=== PATIENT | male | born 1985 | race Caucasian/White ===

== ENCOUNTER 2018-03-28 14:07 | Emergency (ER) | payer OTHER ==
[2018-03-28 14:14] VITALS: BP 115/81
[2018-03-28] MEDS ORDERED: TDAP ADULT 0.5 ML INJ (BOOSTRIX) IM ONE (14:33)
--- NOTE | 2018-03-28 14:59 | EDPHY ---
H & P Time Seen by Provider: 03/28/18 14:35 HPI/ROS: CHIEF COMPLAINT: Right index finger laceration HISTORY OF PRESENT ILLNESS: 33-year-old male with out-of-date tetanus works at [employer] sustained accidental laceration to his right index finger palmar aspect distal phalanx when he put his hand down on a sharp piece of sheet metal sustaining laceration. This was accidental. No paresthesia. No sensory or motor deficit. PHYSICAL EXAM (Prior to examination, patient consented to physical exam, hands were washed and my usual and customary physical exam procedures followed) 1) GENERAL: Well-developed, well-nourished, alert and oriented. Appears to be in no acute distress. 2) HEAD: Normocephalic 3) HEENT: sclera anicteric 4) LUNGS: Breathing comfortably. 5) SKIN: 1.5 cm laceration palmar aspect distal phalanx right index finger. 6) MUSCULOSKELETAL: FDP FDS intact. 7) NEUROLOGIC: Full sensation two-point discrimination intact Smoking Status: Never smoked Constitutional: Initial Vital Signs Temperature (C) 37.0 C 03/28/18 14:12 Heart Rate 76 03/28/18 14:12 Respiratory Rate 16 03/28/18 14:12 Blood Pressure 115/81 H 03/28/18 14:12 O2 Sat (%) 97 03/28/18 14:12 O2 Delivery Mode Room Air Allergies/Adverse Reactions: Sulfa (Sulfonamide Antibiotics) Allergy (Verified 03/28/18 14:11) Home Medications: Medication Instructions Recorded NK [No Known Home Meds] 03/28/18 MDM/Departure - MDM Imaging: I viewed and interpreted images myself Procedures: Procedure: Laceration repair. I explained the indications, risks and benefits for both laceration repair and anesthetic administration. Verbal consent was obtained from the patient. The laceration on the right index finger was anesthetized using 0.5% bupivicaine without epinephrine digital nerve block. After anesthetic administered the patient was observed for a period of time and had no apparent adverse effects. The wound was cleaned, prepped, draped in normal sterile fashion and explored to its base. No foreign body seen, no foreign bodies palpated. There were no deep structures involved. No tendon injury was identified. The wound was repaired with 4 simple interrupted 5 O Prolene sutures. The wound repair was simple. The procedure was performed by myself. Patient has been informed that scarring will occur, although efforts have been made to minimize this. Medications Given: Discontinued Medications Diphtheria/Tetanus/Acell Pertussis (Boostrix) 0.5 ml IM .ONCE ONE Stop: 03/28/18 14:34 Last Admin: 03/28/18 14:46 Dose: 0.5 ml - Depart Disposition: Home, Routine, Self-Care Clinical Impression: Laceration of finger Qualifiers: Encounter type: initial encounter Finger: index finger Damage to nail status: without damage Foreign body presence: without foreign body Laterality: right Qualified Code(s): S61.210A - Laceration without foreign body of right index finger without damage to nail, initial encounter Condition: Good Instructions: Care For Your Stitches (ED), Laceration (ED) Additional Instructions: Return to the ER if you develop redness, swelling, discharge, warmth to the wound, red streaks going up your arm, or any other symptoms that concern you. Referrals: Return, to the ER in 10 days for suture removal [Other] - 04/07/18
== END 2018-03-28 15:20 | disposition home or self-care (01) ==
PROC: 0HQFXZZ Repair Right Hand Skin, External Approach (ICD-10-PCS; principal; 2018-03-28)
DX: S61.210A Laceration without foreign body of right index finger without damage to nail, initial encounter (principal); Z23 Encounter for immunization; W45.8XXA Other foreign body or object entering through skin, initial encounter; Y92.511 Restaurant or cafe as the place of occurrence of the external cause; Y99.0 Civilian activity done for income or pay; Y93.89 Activity, other specified

== ENCOUNTER 2018-09-15 08:49 | Emergency (ER) | payer MEDICAID, OTHER ==
--- NOTE | 2018-09-15 09:23 | EDPHY ---
HPI/HX/ROS/PE/MDM Narrative: CLINICAL IMPRESSION: Intermittent chronic chest pain, episodic dizziness and lightheadedness ASSESSMENT/PLAN: This is a 33-year-old otherwise healthy male presents to the emergency department with episodic chest pain and dizziness that has been going on for nearly a year. Patient reports more frequent symptoms over the last couple weeks. He is currently asymptomatic. EKG shows no acute ST or T-wave changes, normal sinus rhythm, although may have findings consistent with biatrial enlargement. EKG reviewed with Dr. Roberts. Troponin negative. Lab work significant for hypothyroidism, no other electrolyte imbalance, metabolic disturbance, transaminitis, renal insufficiency, leukocytosis, or signs of severe dehydration. Patient has normal orthostatic vital signs. Chest x-ray with no acute cardiopulmonary disease. Patient was encouraged to establish care with a primary care provider in referrals were given. I also gave him referral to Cardiology for outpatient echocardiogram. Home care discussed, warning signs return to ED sooner alignment discharge. Case discussed with Dr. Roberts DIFFERENTIAL DX: Differential diagnosis includes but not limited to myocardial ischemia, pulmonary embolus, chest wall pain, pleural inflammation, musculoskeletal chest wall pain, aortic aneurysm, and pulmonary infectious causes. ED PROCEDURES: See lab and imaging results below ED COURSE: 9:30 a.m.: EKG reviewed with Dr. Roberts. Findings suggestive of biatrial enlargement otherwise sinus rhythm. No murmur auscultated on exam. 10:50 a.m.: Lab, EKG and chest x-ray results reviewed with the patient. Recommended PCP follow-up for possible hypothyroidism. Encouraged cardiology evaluation for outpatient echocardiogram. All questions were answered. CHIEF COMPLAINT: Intermittent chest pain and dizziness HPI: This is a 33-year-old otherwise healthy male who presents to the emergency department with his friend for concerns of intermittent chest pain, dizziness and a near syncopal feeling that have been going on for nearly 1 year. Patient reports episodes are becoming more frequent. He typically feels near syncopal when going from sitting to standing but admits that he can have the sensation when he has been standing for some time. He always seems to have left-sided stay chest pressure with the dizziness. Occasionally this radiates into the neck and arm. He has never actually had a syncopal episode. He has never seen a physician about the symptoms. He has no history of hypertension, hyperlipidemia, diabetes, does not smoke, does not drink regularly, occasionally uses marijuana, and denies a history of illicit IV drug abuse. He reports his mother has"something wrong with her heart"but does not know what. He reports no other family history of cardiovascular disease. 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 He reports this is starting to affect his life and that he is having trouble with work because he feels so dizzy. He denies shortness of breath. He does have anxiety but reports those symptoms present differently. 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 Eyes: No discharge, vision change ENT: No sore throat, congestion, ear pain. Cardiovascular: Chest pain and palpitations. Respiratory: No cough, no shortness of breath. Gastrointestinal: No abdominal pain, no vomiting, diarrhea. Genitourinary: No hematuria, dysuria, flank pain, pelvic pain Musculoskeletal: No back pain, joint swelling, joint pain, myalgias. Skin: No rashes, color change. Neurological: No headache, PHYSICAL EXAM: General Appearance: Alert, oriented, appropriate, cooperative, NAD, well hydrated, non-toxic appearing, VSS, no hypoxia, currently asymptomatic. HEENT: TMs are clear bilaterally no perforation or FB, no injection, no evidence of serous or mucopurulent otitis. Oropharynx clear is no erythema or exudates, no tonsillar hypertrophy or asymmetry. Dentition without abnormality. Eyes: PERRLA, no acute vision change, nystagmus, swelling, discharge, pain or photosensitivity. Conjunctiva pink, no pallor or injection Neck: Supple, nontender, no lymphadenopathy, no midline pain, FROM, no meningismus, no bruits. Respiratory: There are no retractions, lungs are clear to auscultation. Cardiac: Regular rate and rhythm, no murmurs or gallops. Gastrointestinal: Abdomen is soft, nontender, bowel sounds normal, no masses/ hernia, no rigidity, guarding or focal peritoneal findings. Neurological: Alert and oriented x 3, CN 2-12 grossly intact, normal gait no ataxia, DTR's intact, normal sensation and strength Skin: Warm, dry, no rashes, no nodules on palpation. Musculoskeletal: Extremities are symmetrical, full range of motion, no tenderness, deformity, swelling, or erythema., no asymmetric calf swelling or erythema Psychiatric: Patient is oriented X 3, there is no agitation. MEDICAL DECISION MAKING: Patient was seen independently. Secondary supervising physician at time of evaluation was Dr. Roberts . Diagnosis: Chronic intermittent chest pain, episodic lightheadedness. New, requires workup Summary: See Assessment and Plan for summary of ED visit Clinical lab tests: ordered / reviewed. Independent visualization of images, tracing, or specimens: Yes. Discussed patient with another provider: Dr. Roberts Patient Progress: Stable. - Data Points Imaging Results: Imaging Impressions Chest X-Ray 09/15/18 09:05 Impression: Mild hyperexpansion and peribronchial thickening, which could be seen with airways disease. Laboratory Results: Laboratory Results 09/15/18 09:10 09/15/18 09:57 09/15/18 09/15/18 09/15/18 09:57 09:10 09:10 WBC 12.15 10^3/uL H 10^3/uL (3.80-9.50) RBC 5.66 10^6/uL 10^6/uL (4.40-6.38) Hgb 17.0 g/dL g/dL (13.7-17.5) Hct 49.4 % % (40.0-51.0) MCV 87.3 fL fL (81.5-99.8) MCH 30.0 pg pg (27.9-34.1) MCHC 34.4 g/dL g/dL (32.4-36.7) RDW 13.0 % % (11.5-15.2) Plt Count 403 10^3/uL H 10^3/uL (150-400) MPV 9.6 fL fL (8.7-11.7) Neut % (Auto) 65.7 % % (39.3-74.2) Lymph % (Auto) 25.3 % % (15.0-45.0) [place] % (Auto) 7.2 % % (4.5-13.0) Eos % (Auto) 1.1 % % (0.6-7.6) Baso % (Auto) 0.4 % % (0.3-1.7) Nucleat RBC Rel Count 0.0 % % (0.0-0.2) Absolute Neuts (auto) 7.99 10^3/uL H 10^3/uL (1.70-6.50) Absolute Lymphs (auto) 3.07 10^3/uL H 10^3/uL (1.00-3.00) Absolute Monos (auto) 0.87 10^3/uL H 10^3/uL (0.30-0.80) Absolute Eos (auto) 0.13 10^3/uL 10^3/uL (0.03-0.40) Absolute Basos (auto) 0.05 10^3/uL 10^3/uL (0.02-0.10) Absolute Nucleated RBC 0.00 10^3/uL 10^3/uL (0-0.01) Immature Gran % 0.3 % % (0.0-1.1) Immature Gran # 0.04 10^3/uL 10^3/uL (0.00-0.10) Turbidity REJ Sodium 140 mEq/L mEq/L REJ (135-145) Potassium 3.9 mEq/L mEq/L REJ (3.3-5.0) Chloride 103 mEq/L mEq/L REJ (97-110) Carbon Dioxide 29 mEq/l mEq/l REJ (22-31) Anion Gap 8 mEq/L mEq/L REJ (6-14) BUN 12 mg/dL mg/dL REJ (7-23) Creatinine 1.0 mg/dL mg/dL REJ (0.7-1.3) Estimated GFR > 60 REJ Glucose 104 mg/dL H mg/dL REJ (70-100) Calcium 10.0 mg/dL mg/dL REJ (8.5-10.4) POC Troponin I TSH 6.120 uIU/mL H uIU/mL REJ (0.465-4.680) Specimen Hemolysis REJ 09/15/18 09:09 WBC RBC Hgb Hct MCV MCH MCHC RDW Plt Count MPV Neut % (Auto) Lymph % (Auto) [place] % (Auto) Eos % (Auto) Baso % (Auto) Nucleat RBC Rel Count Absolute Neuts (auto) Absolute Lymphs (auto) Absolute Monos (auto) Absolute Eos (auto) Absolute Basos (auto) Absolute Nucleated RBC Immature Gran % Immature Gran # Turbidity Sodium Potassium Chloride Carbon Dioxide Anion Gap BUN Creatinine Estimated GFR Glucose Calcium POC Troponin I 0.00 ng/mL ng/mL (0.00-0.08) TSH Specimen Hemolysis Point of Care Test Results: Chemistry 09/15/18 09:09 POC Troponin I 0.00 ng/mL ng/mL (0.00-0.08) General Time Seen by Provider: 09/15/18 09:04 Initial Vital Signs: Initial Vital Signs Temperature (C) 36.7 C 09/15/18 08:50 Heart Rate 69 09/15/18 08:50 Respiratory Rate 16 09/15/18 08:50 Blood Pressure 138/70 H 09/15/18 08:50 O2 Sat (%) 99 09/15/18 08:50 O2 Delivery Mode Room Air Allergies/Adverse Reactions: Sulfa (Sulfonamide Antibiotics) Allergy (Verified 03/28/18 14:11) Home Medications: Medication Instructions Recorded NK [No Known Home Meds] 03/28/18 Departure - Departure Disposition: Home, Routine, Self-Care Clinical Impression: Chronic chest pain, Episode of dizziness Condition: Good Instructions: Chest Pain (ED), Dizziness (ED) Additional Instructions: DISCHARGE INSTRUCTIONS FROM YOUR DOCTOR Thank you for visiting our emergency department today. Please keep in mind that discharge from the emergency department does not mean that there is nothing wrong - it simply means that we have not identified an emergency condition that requires further evaluation or treatment in the hospital. You should always plan to follow up with primary care for re-evaluation of your condition in the next 2-3 days. If you have been referred to a specialist, please call as soon as possible (today or tomorrow) to schedule your follow up appointment at the appropriate time. We did not identify a dangerous cause for your symptoms today. EKG did not show any evidence of heart attack or arrhythmia. You did have some findings that our ED physician thought might be due to slightly enlarged atria and we recommend outpatient cardiology evaluation and echocardiogram. The remainder of your lab work was normal aside from an elevated TSH which may indicate hypothyroidism. This can be addressed by a primary care doctor. Your chest x- ray is reassuring. A cardiology referral was provided. Please call them, let them know you were in emergency department patient, and they will help you schedule an appointment. Please stay well hydrated, eat regular meals, avoid exercise if it exacerbates your symptoms, and return to the emergency department for severe or worsening chest pain, fainting episodes, severe shortness of breath, or any other concerns. People present with illnesses and injuries in different ways, and it is always possible that we have missed something. You may always return for re-evaluation if symptoms worsen or if they are not improving or if you develop new/different symptoms. Again, thank you for choosing our emergency department. We hope that you feel better. Referrals: NONE *PRIMARY CARE P,. [Primary Care Provider] - As per Instructions Trisha Singh MD [[facility] [place] Primary Care Provider] - As per Instructions Maria M Hess MD [Medical Doctor] - 2-3 days, call for appt. [facility],. [Clinic] - 2-3 days, call for appt.
--- NOTE | 2018-09-15 09:29 | CPEKG ---
Test Reason : OPEN Blood Pressure : / mmHG Vent. Rate : 075 BPM Atrial Rate : 074 BPM P-R Int : 132 ms QRS Dur : 093 ms QT Int : 385 ms P-R-T Axes : 078 076 022 degrees QTc Int : 430 ms Sinus rhythm Biatrial enlargement Confirmed by Ty Roberts ([id number]) on 09/15/2018 9:28:37 AM Referred By: Confirmed By:Ty Roberts
[2018-09-15 09:30] LABS: PLATELET COUNT 403 10^3/uL (150-400)
[2018-09-15 11:13] VITALS: BP 115/82
== END 2018-09-15 11:17 | disposition home or self-care (01) ==
DX: R07.9 Chest pain, unspecified (principal); G89.29 Other chronic pain; R42 Dizziness and giddiness
CPT/HCPCS: 84484-PO